=== PATIENT | female | born 1965 | race African-American/Black ===

== ENCOUNTER 2016-09-05 14:23 | Inpatient (IN) | payer OTHER ==
[~2016-09-05] VITALS: Ht 157.5 cm; Wt 91.8 kg
--- NOTE | ~2016-09-05 | 2DMMODE ---
[facility] [place] [address] 2 D/M-MODE ECHOCARDIOGRAM Name: DAWOOD CASTRO Room #: 202-P [facility] IN .R.#: [id number] Admission: 09/05/16 Attend Phys: Natasha Rojo Discharge: Date of : 69 Date of Service: 09/06/16 1121 Report #: [id number] THIS REPORT FOR: //name// Transthoracic Echocardiography Ordering physician: Luisito Keller Referring physician: Gonzalo Shaffer Vijay Perinatology Physician: Anastasiia Mcgrath Indications/History: Chest pain, short of breath. Hx: DM, HTN, obesity. BP: 91 / 56 HR: 85bpm Height: 62in Weight: 199.6lb Study data: M-mode, complete 2D, complete spectral Doppler, and color Doppler. Location: Echo laboratory. Routine. Image quality was adequate. 2D measurements Normal Normal LVID ED 41mm 36-57 IVS ED 12.2mm 6-11 LVID ES 27.2mm 23-40 LVPW ED 9.2mm 6-11 LA volume 20ml/m2 16-28 AoRoot diam 34.6mm 21-37 index ED LVOT diameter 20mm 18-23 Findings: Left ventricle: The cavity size was normal. Wall thickness was normal. Systolic function was normal. The estimated ejection fraction was in the range of 60% to 65%. Wall motion was normal. Right ventricle: The cavity size was normal. Systolic function was normal. Right atrium: The atrium was normal in size. Left atrium: The atrium was normal in size. Volume index: 20ml/m2 (S). Aortic valve: Structurally normal valve. Doppler: There was no stenosis. No regurgitation. Peak velocity: 138.4cm/s (S). [facility] [address] [place] [address] 2 D/M-MODE ECHOCARDIOGRAM Name: DAWOOD CASTRO Room #: 202-P [facility] IN .R.#: [id number] Admission: 09/05/16 Attend Phys: Luisitokale Gilesdoni Natasha Discharge: Date of : 69 Date of Service: 09/06/16 1121 Report #: [id number] Mitral valve: Structurally normal valve. Doppler: There was no evidence for stenosis. No regurgitation. Peak E-wave velocity: 50.6cm/s. Peak A-wave velocity: 71cm/s. Tricuspid valve: Structurally normal valve. Doppler: There was no evidence for stenosis. Trivial regurgitation. Pulmonic valve: Structurally normal valve. Doppler: There was no evidence for stenosis. Mild regurgitation. Pericardium: There was no pericardial effusion. Aorta: Aortic root: The aortic root was normal in size. Pulmonary artery: Pressure could not be reliably determined due to minimal or absent tricuspid insufficiency jet, but pulmonary hypertension was not suggested. Diastolic function: Doppler parameters are consistent with abnormal left ventricular relaxation (grade 1 diastolic dysfunction). Systemic veins: Inferior vena cava: The vessel was normal in size; the respirophasic diameter changes were in the normal range (= 50%). Conclusions 1. Left ventricle: Systolic function was normal. The estimated ejection fraction was in the range of 60% to 65%. Wall motion was normal. Doppler parameters are consistent with abnormal left ventricular relaxation (grade 1 diastolic dysfunction). 2. Aortic valve: Structurally normal valve. There was no stenosis. No regurgitation. 3. Mitral valve: Structurally normal valve. There was no evidence for stenosis. No regurgitation. 4. Pericardium, extracardiac: There was no pericardial effusion. <ELECTRONICALLY SIGNED> By: Everett Ochoa MD, [facility] 09/06/16 1227 1121 1227 Everett Ochoa MD, [facility] /enrique
--- NOTE | ~2016-09-05 | EKG ---
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
--- NOTE | ~2016-09-05 | EKG ---
[address] [place] [address] ELECTROCARDIOGRAM REPORT Name: DAWOOD CASTRO Room #: 202-P ADM IN M.R.#: [id number] Admission: 09/05/16 Attend Phys: Luisito Keller MD Discharge: Date of : 69 Report #: [id number] THIS REPORT FOR: //name// [facility] Test Date: 2016-09-05 Test Time: 18:09:35 Pat Name: DAWOOD CASTRO Department: Room: 202 Gender: F Airport Operations Specialist: Natasha OSORIO : 1965 Requested By: Luisito Keller Order Number: [id number] MD: Oneil Miller Measurements Intervals [place] Rate: 75 P: 56 HI: 132 QRS: 22 QRSD: 79 T: 21 QT: 375 QTc: 419 Interpretive Statements Sinus rhythm Low voltage, precordial leads Baseline wander in lead(s) II,III,aVF Compared to ECG 09/05/2016 14:30:40 Low QRS voltage now present Sinus tachycardia no longer present Electronically Signed On 09-06-2016 8:19:51 IS PROJECT MANAGER by Oneil Miller [email or web address] <ELECTRONICALLY SIGNED> By: Oneil Miller MD 09/06/16 0819 180 180 Oneil Miller MD /EPI
--- NOTE | ~2016-09-05 | H ---
[facility] [place] [address] HISTORY AND PHYSICAL Name: DAWOOD CASTRO Room #: 202-P [facility] IN M.R.#: [id number] Admission: 09/05/16 Attend Phys: Luisito Keller MD Discharge: 09/07/16 Date of : 69 Report #: [id number] THIS REPORT FOR: //name// CC: Gonzalo Keller MD DATE OF SERVICE: 09/05/2016 CHIEF COMPLAINT: Chest pain. HISTORY OF PRESENT ILLNESS: The patient is a 50-year-old female with history of diabetes, hypertension who presented to the Emergency Room complaining of chest pain and shortness of breath symptoms. Chest pain had been ongoing over the last 1 week on and off, it is primarily over the left side with occasional radiation to the arm. She rates the pain over 6-7/10. Pain is on and off both at rest and with activity. It is primarily when she lies down. Pain increases with the arm movement. She has also had shortness of breath and nausea. Apparently, she has been using her daughter's oxygen at home for the last 3 days because of shortness of breath. No fever or chills. She denies any cough, expectoration, no nausea, vomiting. No dizziness. PAST MEDICAL HISTORY: Significant for diabetes type 2, hypertension, partial hysterectomy in 2005, left ankle fracture in 1986, history of asthma or bronchiolitis. She has been on prednisone since August of 2015 for lung inflammation. No history of any sarcoidosis, history of appendectomy, cholecystectomy, chronic anemia requiring transfusion, frequent UTI and lupus. HOME MEDICATIONS: Were reviewed, please look at the nursing documentations. The patient has been on Invokana, Levemir 16 units twice a day, lisinopril/hydrochlorothiazide once a day. ALLERGIES: No known drug allergies. SOCIAL HISTORY: No smoking, alcohol abuse or illicit drug abuse. FAMILY HISTORY: Significant for hypertension in mother and grandmother had congestive heart failure. REVIEW OF SYSTEMS: CONSTITUTIONAL: No change in her weight. No fever or chills. EYES: No change in vision. THROAT: Denies any sore throat. CARDIOVASCULAR: As above. RESPIRATORY: No cough, expectoration. She has had mild shortness of breath. [facility] [address] [place] [address] HISTORY AND PHYSICAL Name: DAWOOD CASTRO Room #: 202-[facility] IN ..#: [id number] Admission: 09/05/16 Attend Phys: Luisito Keller MD Discharge: 09/07/16 Date of : 69 Report #: [id number] GASTROINTESTINAL: No nausea, vomiting. GENITOURINARY: No dysuria, hematuria. NEUROLOGIC: No focal numbness or weakness of the extremities. PSYCHIATRIC: No anxiety or depression. The 12-point review of system is negative other than the positive and the negative dictated in the history of present illness and the review of system. PHYSICAL EXAMINATION: VITAL SIGNS: Blood pressure is 120/73, heart rate of 85 per minute, afebrile. GENERAL: The patient is awake and alert, not in acute respiratory distress. EYES: Pupils equal, reactive to light, nonicteric conjunctiva. NECK: Supple, no JVD, no bruit, no lymphadenopathy. CARDIOVASCULAR SYSTEM: S1, S2, no S3, no murmur. CHEST: Bilateral air entry present. Clear on auscultation. ABDOMEN: Soft, bowel sounds present, no mass, no organomegaly, no tenderness. PERIPHERY: No pedal edema. No calf tenderness. Dorsalis pedis 1+. NEUROLOGICAL: No gross motor or sensory deficit. LABORATORY DATA: Reviewed. EKG shows sinus tachycardia, no significant ST segment or T-wave changes. CT of the chest showed no PE. A small reactive mediastinal adenopathy. Lungs are clear of acute infiltrate. A small subpleural nodule in the right mid lung. Areas of breast density and calcification are difficult to characterize on the right side. Mammographic correlation is recommended. Chest x-ray earlier today showed no significant cardiopulmonary abnormality. Troponin has been negative so far. White count is 10.4, normal hemoglobin, hematocrit and platelets. Potassium 3.2, BUN and creatinine are within normal limit. Glucose 361, AST and ALT are within normal limit. Albumin is 3.4. PT, PTT are within normal limits. ASSESSMENT AND PLAN: 1. Chest pain, atypical. She has some focal tenderness over the costochondral junction, but she does have multiple risk factors. The patient will be admitted to telemetry troponin. We want to repeat another stat EKG and a troponin. I have discussed this with the patient, nursing staff in detail. She will be continued on aspirin. We will keep her n.p.o. for possible stress test in the morning if her serial troponins are negative. She did have a CT of the chest done, which showed no evidence of any PE. 2. Diabetes. We will get her obtain an A1c level. We will keep her on sliding scale insulin and continue her on the Levemir home dose. 3. DVT prophylaxis, she will be on Lovenox for deep venous thrombosis prophylaxis. 4. Obesity. 5. Hypertension. The patient will be continued on her present home medication for hypertension. We will monitor closely. 6. History of lupus and lung inflammation for which she takes prednisone. [facility] [address] [facility] [place] [address] HISTORY AND PHYSICAL Name: DAWOOD CASTRO Room #: 202-P [facility] IN M.R.#: [id number] Admission: 09/05/16 Attend Phys: Luisito Keller MD Discharge: 09/07/16 Date of : 69 Report #: [id number] Prednisone will be continued. Treatment plan has been explained to the patient in detail. <ELECTRONICALLY SIGNED> By: Luisito Keller MD 09/08/16 1417 1751 1901 Luisito Keller MD /nt
--- NOTE | ~2016-09-05 | CARDNUC ---
[facility] [address] [employer] [place] [address] CARDIAC NUCLEAR IMAGING REPORT Name: GLORIADAWOOD DE SOUZA Room #: 202-P [facility] IN M.R.#: [id number] Admission: 09/05/16 Attend Phys: Natasha Rojo Discharge: 09/07/16 Date of : 69 Date of Service: 09/07/16 1751 Report #: [id number] THIS REPORT FOR: //name// CC: Gonzalo Keller DATE OF SERVICE: 09/06/2016 Vasodilator Gated SPECT Myocardial Perfusion Imaging: Regadenoson Attending physician: Luisito Keller MD. Referring board mill supervisor: None. Date of study: 09/06/2016. 2-day study. Indications for study: Chest pain and dyspnea. Risk factors: Age, hypertension, and diabetes mellitus. Cardiac history: None. Cardiac medications: Lisinopril. Gender: Female. PROCEDURE: The patient was given 0.4 mg of intravenous regadenoson (Lexiscan) administered over approximately 20 seconds. The patient did not complain of chest discomfort during the infusion. At baseline, the blood pressure was 96/61 and the pulse was 89; at completion of the regadenoson infusion, the blood pressure was 96/60 and the pulse was 121. At completion of the recovery phase, the blood pressure was 93/57 and the pulse was 113. The baseline EKG demonstrated normal sinus rhythm, poor R-wave progression, nonspecific ST-T wave changes. The EKG at completion of the administration of regadenoson demonstrated no significant changes noticed. Rhythm disturbances included none. Gated-SPECT myocardial perfusion imaging was performed using a two-day imaging protocol and a technetium isotope technique. The 40.0 mCi of Tc-99m sestamibi was administered intravenously at rest; 40.0 mCi of Tc-99m sestamibi was administered intravenously within 10 seconds of the completion of the administration of regadenoson. Imaging was obtained in the supine position and when feasible, adjunctive stress imaging in the prone position was obtained. FINDINGS: The overall quality of the study was satisfactory. There was evidence of attenuation artifact. There was no evidence of abnormal extracardiac uptake of the radionuclide. The baseline imaging study demonstrated homogenous uptake of radioisotope all segments of the myocardium, except for a region of photopenia in the anterior [address] [address] CARDIAC NUCLEAR IMAGING REPORT Name: DAWOOD CASTRO Room #: 202-P [facility] IN M.R.#: [id number] Admission: 09/05/16 Attend Phys: Natasha Rojo Discharge: 09/07/16 Date of : 69 Date of Service: 09/07/16 1751 Report #: [id number] apical wall. The imaging obtained following the administration of the vasodilator demonstrated no significant changes. On gated analysis, the left ventricle demonstrated normal contractility. The gated ejection fraction was 90%. The left ventricle was of normal size at rest and did not dilate with administration of the vasodilator. IMPRESSIONS: CLINICAL RESPONSE: Adequate response to intravenous Lexiscan. STRESS EKG RESPONSE: Inadequate heart rate for an ECG diagnosis. MYOCARDIAL PERFUSION STUDY: Scintigraphic evidence of anterior wall region of photopenia without wall motion abnormality which is suggestive of attenuation artifact. FUNCTIONAL CAPACITY: Not assessed. CONCLUSIONS: Low risk study. <ELECTRONICALLY SIGNED> By: Heber Kim MD 09/08/16 1235 1751 1859 Heber Kmi MD /nt
[~2016-09-05 14:23] MED LIST: ACTOS 30 MG TAB30 M1; ADVAIR 250-501 EACH IH; ALBUTEROL2.5 MG/0.5 INH; ANTIVERT25 MG; ASPIRIN81 M2 PO; ATIVAN1 MG PO; BP MED; CIPROFLOXACIN500 M1 PO; DIFLUCAN150 MG PO; FLAGYL500 MG PO; GLIMEPIRIDE4 MG; GLUCOPHAGE500 MG PO; GUIATUSS DM SY120 ML PO; IBUPROFEN 600600 M1 PO; INVOKANA100 MG PO; LEVEMIR SUBQ; LISINOPRIL-HCT1 EAC1 PO; LO-DOSE ASPIRIN81 M1 PO; MECLIZINE 25 MG25 M1; MECLIZINE HCL25 M1 PO; MOTION RELIEF25 MG PO; NORCO 5-325 TA1 EACH PO; NYAMYC15 GM TOP; PEPCID40 MG PO; PERCOCET PO; PREDNISONE 20 M20 M1 PO; PRILOSEC 20 MG20 MG PO; PROAIR HFA8.5 GM INH; PROTONIX 20 MG20 M1 PO; PROVENTIL; TRANSDERM-SCO1 PATC1 TD; ZOFRAN ODT4 MG PO; ZPAK PO
[2016-09-05 14:32] VITALS: BP 139/93
[2016-09-05 15:04] LABS: ABSOLUTE NEUTROPHILS 5.6 thou/uL (1.4-8.2); BASOPHILS 1.5 % (0.0-2.0); EOSINOPHILS 1.1 % (0.0-3.0); HEMATOCRIT 41.6 % (37.0-47.0); HEMOGLOBIN 13.9 gm/dL (12.0-15.0); LYMPHOCYTES 36.4 % (24.0-44.0); MCH 25.4 pg (26.0-34.0); MCHC 33.4 % (28.0-37.0); MCV 75.8 fL (80.0-100.0); MONOCYTES 5.7 % (1.0-8.0); PLATELET COUNT 385 thou/uL (150-400); POLYS 55.3 % (36.0-66.0); RBC 5.49 mil/uL (4.20-5.00); RDW 14.1 % (10.5-14.5); WBC 10.1 thou/uL (4.0-11.0)
[2016-09-05 15:05] LABS: MANUAL DIFF NO
[2016-09-05 15:08] LABS: ANION GAP 11 mmol/L (7-16); BUN 6 mg/dL (7-18); CALCIUM 9.4 mg/dL (8.5-10.1); CHLORIDE 100 mmol/L (98-107); CO2 26 mmol/L (21-32); CREATININE 0.7 mg/dL (0.6-1.3); GLUCOSE 361 mg/dL (70-99); POTASSIUM 3.6 mmol/L (3.5-5.1); SODIUM 137 mmol/L (136-145)
[2016-09-05 15:13] LABS: APTT 22.6 Seconds (24.5-32.8); PROTIME 10.2 Seconds (9.3-11.4)
[2016-09-05 15:21] LABS: ALBUMIN 3.4 g/dL (3.4-5.0); ALKALINE PHOSPHATASE 91 U/L (46-116); NT-PRO BRAIN NAT PEPTIDE 35 pg/mL (<300); SGOT < 5 U/L (15-37); SGPT 20 U/L (30-65); TOTAL BILIRUBIN 0.4 mg/dL (<0.1-1.0); TOTAL PROTEIN 7.5 g/dL (6.4-8.2); TROPONIN-I < 0.04 ng/mL (<0.04-0.07)
[2016-09-05 17:17] VITALS: BP 121/71
[2016-09-05 17:50] VITALS: BP 112/78
[2016-09-05 19:29] VITALS: BP 114/73
[2016-09-05 23:30] VITALS: BP 107/73
[2016-09-06 03:03] LABS: CHOLESTEROL 186 mg/dL (<200); HDL CHOLESTEROL 33 mg/dL (>40); TC:HDL 5.6 Ratio (Not establshd); TRIGLYCERIDE 585 mg/dL (<150); TROPONIN-I < 0.04 ng/mL (<0.04-0.07); VLDL 117 mg/dL (<40)
[2016-09-06 03:09] VITALS: BP 111/66
[2016-09-06 03:12] LABS: GLYCOHEMOGLOBIN (HGB A1C) 12.9 % (4.8-5.6)
[2016-09-06 07:20] VITALS: BP 91/56
[2016-09-06 11:20] VITALS: BP 96/69
[2016-09-06 16:25] VITALS: BP 96/58
[2016-09-06 19:34] VITALS: BP 97/57
[2016-09-07 03:19] VITALS: BP 100/63
[2016-09-07 07:12] VITALS: BP 107/69
[2016-09-07 11:33] VITALS: BP 107/76
[2016-09-07] MEDS ORDERED: PREDNISONE 20 M20 M1 PO (15:17)
[2016-09-07] MEDS ORDERED: LEVEMIR SUBQ (15:17)
[2016-09-07 16:27] VITALS: BP 117/71
[2016-09-07 18:02] VITALS: BP 117/71
== END 2016-09-07 18:55 | disposition home or self-care (01) | DRG 313 ==
LOC: ER 14:23 → 2N 17:03 → EROBS 17:03 → ER 17:17 → 2N 17:17
PROVIDERS: Emergency Medicine; Internal Medicine
DX: R07.89 Other chest pain (principal); E11.9 Type 2 diabetes mellitus without complications; I10 Essential (primary) hypertension; J45.909 Unspecified asthma, uncomplicated; Z90.49 Acquired absence of other specified parts of digestive tract; Z79.899 Other long term (current) drug therapy; Z87.81 Personal history of (healed) traumatic fracture; Z90.711 Acquired absence of uterus with remaining cervical stump; Z82.49 Family history of ischemic heart disease and other diseases of the circulatory system; E66.9 Obesity, unspecified; Z68.37 Body mass index [BMI] 37.0-37.9, adult; E78.1 Pure hyperglyceridemia; Z23 Encounter for immunization
CPT/HCPCS: 10081

== ENCOUNTER 2017-01-26 11:40 | Emergency (ER) | payer OTHER ==
[~2017-01-26] VITALS: Ht 157.5 cm; Wt 90.7 kg
[~2017-01-26 11:40] MED LIST changes: +BACTRIM DS TAB1 EACH PO; +KEFLEX500 MG PO
[2017-01-26 12:08] LABS: URINE BILIRUBIN NEGATIVE (Negative); URINE BLOOD NEGATIVE (Negative); URINE COLOR YELLOW; URINE GLUCOSE-RANDOM* 3+ (Negative); URINE KETONES NEGATIVE (Negative); URINE LEUKOCYTES-REFLEX NEGATIVE (Negative); URINE PROTEIN (DIPSTICK) NEGATIVE (Negative); URINE SPECIFIC GRAVITY <= 1.005 (1.003-1.035); URINE UROBILINOGEN 0.2 E.U./dl (0.2-1.0)
[2017-01-26 12:45] LABS: ABSOLUTE NEUTROPHILS 6.3 thou/uL (1.4-8.2); BASOPHILS 0.9 % (0.0-2.0); EOSINOPHILS 1.1 % (0.0-3.0); HEMATOCRIT 39.5 % (37.0-47.0); HEMOGLOBIN 13.5 gm/dL (12.0-15.0); LYMPHOCYTES 29.4 % (24.0-44.0); MANUAL DIFF NO; MCH 25.8 pg (26.0-34.0); MCHC 34.2 g/dL (28.0-37.0); MCV 75.5 fL (80.0-100.0); MONOCYTES 7.4 % (1.0-8.0); PLATELET COUNT 384 thou/uL (150-400); POLYS 61.2 % (36.0-66.0); RBC 5.23 mil/uL (4.20-5.00); RDW 14.2 % (10.5-14.5); WBC 10.2 thou/uL (4.0-11.0)
[2017-01-26 12:52] LABS: CALCIUM 9.2 mg/dL (8.5-10.1); CREATININE 0.7 mg/dL (0.6-1.0); POTASSIUM 4.3 mmol/L (3.5-5.1)
[2017-01-26 12:56] LABS: ALBUMIN 3.3 g/dL (3.4-5.0); TOTAL BILIRUBIN 0.3 mg/dL (<0.1-1.0); TOTAL PROTEIN 7.5 g/dL (6.4-8.2)
[2017-01-26] MEDS ORDERED: TESSALON PERLE100 MG PO (13:33)
[2017-01-26] MEDS ORDERED: PHENERGAN 25 MG25 M1 PO (13:33)
== END 2017-01-26 14:07 | disposition home or self-care (01) ==
LOC: ER 11:40
PROVIDERS: Physician Assistant
DX: R11.2 Nausea with vomiting, unspecified (principal); R19.7 Diarrhea, unspecified; R05 Cough; B34.9 Viral infection, unspecified; E11.65 Type 2 diabetes mellitus with hyperglycemia; I10 Essential (primary) hypertension; J45.909 Unspecified asthma, uncomplicated; M32.9 Systemic lupus erythematosus, unspecified; Z90.710 Acquired absence of both cervix and uterus; Z90.49 Acquired absence of other specified parts of digestive tract; Z86.2 Personal history of diseases of the blood and blood-forming organs and certain disorders involving the immune mechanism; Z87.440 Personal history of urinary (tract) infections; Z79.4 Long term (current) use of insulin

== ENCOUNTER 2017-02-01 02:19 | Emergency (ER) | payer OTHER ==
[~2017-02-01] VITALS: Ht 157.5 cm; Wt 90.7 kg
--- NOTE | ~2017-02-01 | EKG ---
[place] [address] [facility] [place] [address] ELECTROCARDIOGRAM REPORT Name: GLORIADAWOOD DE SOUZA [id number] Admission: 02/01/17 Attend Phys: Discharge: 02/01/17 Date of : 69 Report #: [id number] THIS REPORT FOR: //name// [facility] ED Test Date: 2017-02-01 Test Time: 02:34:10 Pat Name: DAWOOD CASTRO Department: Room: Gender: F Restorative Rehab Aide: GUY : 1965 Requested By: Medhat Chakraborty Order Number: [id number] MD: Everett Ochoa Measurements Intervals [place] Rate: 94 P: 52 [place]: 141 QRS: 34 QRSD: 82 T: 30 QT: 353 QTc: 442 Interpretive Statements Sinus rhythm No significant abnormality Compared to ECG 12/14/2016 16:25:41 septal Q waves are no longer present. Electronically Signed On 02-02-2017 8:06:26 CDT by Everett Ochoa [email or web address] <ELECTRONICALLY SIGNED> By: Everett Ochoa MD, [facility] 02/02/17 0806 0234 023 Everett Ochoa MD, FACC /EPI
[~2017-02-01 02:19] MED LIST changes: +PHENERGAN 25 MG25 M1 PO; +TESSALON PERLE100 MG PO
[2017-02-01 02:48] LABS: ABSOLUTE NEUTROPHILS 6.6 thou/uL (1.4-8.2); BASOPHILS 2.5 % (0.0-2.0); EOSINOPHILS 1.4 % (0.0-3.0); HEMATOCRIT 37.7 % (37.0-47.0); HEMOGLOBIN 12.8 gm/dL (12.0-15.0); LYMPHOCYTES 34.3 % (24.0-44.0); MCH 25.8 pg (26.0-34.0); MCV 75.9 fL (80.0-100.0); MONOCYTES 9.5 % (1.0-8.0); PLATELET COUNT 356 thou/uL (150-400); POLYS 52.3 % (36.0-66.0); RBC 4.96 mil/uL (4.20-5.00); RDW 13.9 % (10.5-14.5); WBC 12.6 thou/uL (4.0-11.0)
[2017-02-01 02:49] LABS: MANUAL DIFF NO
[2017-02-01 03:03] LABS: ANION GAP 8 mmol/L (7-16); BUN 13 mg/dL (7-18); CALCIUM 9.7 mg/dL (8.5-10.1); CHLORIDE 98 mmol/L (98-107); CO2 29 mmol/L (21-32); CREATININE 0.9 mg/dL (0.6-1.0); GLUCOSE 381 mg/dL (74-106); SODIUM 135 mmol/L (136-145)
[2017-02-01 03:07] LABS: ALBUMIN 3.2 g/dL (3.4-5.0); ALKALINE PHOSPHATASE 91 U/L (46-116); MAGNESIUM 1.9 mg/dL (1.8-2.4); SGOT 13 U/L (15-37); SGPT 21 U/L (30-65); TOTAL BILIRUBIN 0.3 mg/dL (<0.1-1.0); TROPONIN-I < 0.04 ng/mL (<0.04-0.07)
[2017-02-01 03:21] LABS: URINE BILIRUBIN NEGATIVE (Negative); URINE BLOOD NEGATIVE (Negative); URINE COLOR YELLOW; URINE GLUCOSE-RANDOM* 3+ (Negative); URINE KETONES NEGATIVE (Negative); URINE LEUKOCYTES-REFLEX NEGATIVE (Negative); URINE PROTEIN (DIPSTICK) NEGATIVE (Negative); URINE SPECIFIC GRAVITY <= 1.005 (1.003-1.035); URINE UROBILINOGEN 0.2 E.U./dl (0.2-1.0)
[2017-02-01] MEDS ORDERED: NAPROXEN375 MG PO (03:52)
[2017-02-01] MEDS ORDERED: TRAMADOL 50 MG50 MG PO (03:52)
[2017-02-01] MEDS ORDERED: VENTOLIN HFA 1818 GM INH (03:53)
[2017-02-01] MEDS ORDERED: PROAIR HFA8.5 GM INH (03:54)
[2017-02-01] MEDS ORDERED: VALIUM2 MG PO (04:26)
== END 2017-02-01 05:07 | disposition home or self-care (01) ==
LOC: ER 02:19
PROVIDERS: Emergency Medicine
DX: R42 Dizziness and giddiness (principal); R05 Cough; D72.829 Elevated white blood cell count, unspecified; M79.1 Myalgia; E11.9 Type 2 diabetes mellitus without complications; I10 Essential (primary) hypertension; Z90.711 Acquired absence of uterus with remaining cervical stump; J45.909 Unspecified asthma, uncomplicated; Z90.49 Acquired absence of other specified parts of digestive tract; M32.9 Systemic lupus erythematosus, unspecified

== ENCOUNTER 2017-03-09 20:28 | Emergency (ER) | payer OTHER ==
[~2017-03-09] VITALS: Ht 157.5 cm; Wt 86.2 kg
--- NOTE | ~2017-03-09 | EKG ---
[address] [address] ELECTROCARDIOGRAM REPORT Name: DAWOOD CASTRO [facility] [id number] Admission: 03/09/17 Attend Phys: Discharge: 03/09/17 Date of : 69 Report #: [id number] THIS REPORT FOR: //name// [facility] ED Test Date: 2017-03-09 Test Time: 21:06:06 Pat Name: DAWOOD CASTRO Department: Room: Gender: F Tools Programmer: ELVIA Flores : 1965 Requested By: Dayana Rodriguez Order Number: [id number] MD: Oneil Miller Measurements Intervals [place] Rate: 92 P: 53 CT: 152 QRS: 24 QRSD: 85 T: 24 QT: 366 QTc: 453 Interpretive Statements Sinus rhythm Compared to ECG 02/01/2017 02:34:10 No significant changes Electronically Signed On 03-12-2017 22:03:15 CDT by Oneil Miller [email or web address] <ELECTRONICALLY SIGNED> By: Oneil Miller MD 03/12/17 2203 2106 MD YAMILET Arroyo
[~2017-03-09 20:28] MED LIST changes: +NAPROXEN375 MG PO; +TRAMADOL 50 MG50 MG PO; +VALIUM2 MG PO; +VENTOLIN HFA 1818 GM INH
[2017-03-09 21:09] LABS: ABSOLUTE NEUTROPHILS 7.2 thou/uL (1.4-8.2); BASOPHILS 2.1 % (0.0-2.0); EOSINOPHILS 0.6 % (0.0-3.0); HEMATOCRIT 37.7 % (37.0-47.0); HEMOGLOBIN 12.9 gm/dL (12.0-15.0); LYMPHOCYTES 29.1 % (24.0-44.0); MCHC 34.2 g/dL (28.0-37.0); MONOCYTES 9.1 % (1.0-8.0); PLATELET COUNT 360 thou/uL (150-400); POLYS 59.1 % (36.0-66.0); RBC 4.96 mil/uL (4.20-5.00); RDW 14.3 % (10.5-14.5); WBC 12.2 thou/uL (4.0-11.0)
[2017-03-09 21:12] LABS: MANUAL DIFF NO
[2017-03-09 21:19] LABS: ANION GAP 11 mmol/L (7-16); BUN 12 mg/dL (7-18); CALCIUM 9.1 mg/dL (8.5-10.1); CHLORIDE 96 mmol/L (98-107); CO2 27 mmol/L (21-32); GLUCOSE 454 mg/dL (74-106); POTASSIUM 3.8 mmol/L (3.5-5.1); SODIUM 134 mmol/L (136-145)
[2017-03-09 21:26] LABS: URINE BILIRUBIN NEGATIVE (Negative); URINE BLOOD NEGATIVE (Negative); URINE COLOR YELLOW; URINE GLUCOSE-RANDOM* 3+ (Negative); URINE KETONES NEGATIVE (Negative); URINE NITRITE NEGATIVE (Negative); URINE PROTEIN (DIPSTICK) NEGATIVE (Negative); URINE SPECIFIC GRAVITY <= 1.005 (1.003-1.035); URINE UROBILINOGEN 0.2 E.U./dl (0.2-1.0)
[2017-03-09 21:26] LABS: ALBUMIN 3.2 g/dL (3.4-5.0); ALKALINE PHOSPHATASE 90 U/L (46-116); SGOT 14 U/L (15-37); SGPT 21 U/L (30-65); TOTAL BILIRUBIN 0.2 mg/dL (<0.1-1.0); TOTAL PROTEIN 7.5 g/dL (6.4-8.2); TROPONIN-I < 0.04 ng/mL (<0.04-0.07)
== END 2017-03-09 23:25 | disposition home or self-care (01) ==
LOC: ER 20:28
PROVIDERS: Physician Assistant
DX: E11.65 Type 2 diabetes mellitus with hyperglycemia (principal); R20.2 Paresthesia of skin; I10 Essential (primary) hypertension; J45.909 Unspecified asthma, uncomplicated; M32.9 Systemic lupus erythematosus, unspecified; Z90.711 Acquired absence of uterus with remaining cervical stump; Z90.49 Acquired absence of other specified parts of digestive tract; Z79.4 Long term (current) use of insulin

== ENCOUNTER 2017-06-15 13:56 | Emergency (ER) | payer OTHER ==
[~2017-06-15] VITALS: Ht 167.6 cm; Wt 99.8 kg
[2017-06-15 14:45] LABS: ABSOLUTE NEUTROPHILS 6.6 thou/uL (1.4-8.2); BASOPHILS 1.2 % (0.0-2.0); HEMATOCRIT 39.9 % (37.0-47.0); HEMOGLOBIN 13.6 gm/dL (12.0-15.0); LYMPHOCYTES 29.4 % (24.0-44.0); MANUAL DIFF NO; MCHC 34.2 g/dL (28.0-37.0); MCV 76.1 fL (80.0-100.0); PLATELET COUNT 387 thou/uL (150-400); POLYS 62.4 % (36.0-66.0); RBC 5.24 mil/uL (4.20-5.00); RDW 14.3 % (10.5-14.5); WBC 10.6 thou/uL (4.0-11.0)
[2017-06-15 14:48] LABS: CALCIUM 9.5 mg/dL (8.5-10.1); CREATININE 0.8 mg/dL (0.6-1.0); POTASSIUM 4.1 mmol/L (3.5-5.1)
[2017-06-15 14:55] LABS: ALBUMIN 3.2 g/dL (3.4-5.0); TOTAL BILIRUBIN 0.3 mg/dL (<0.1-1.0); TOTAL PROTEIN 7.4 g/dL (6.4-8.2)
[2017-06-15 15:27] LABS: URINE BILIRUBIN NEGATIVE (Negative); URINE BLOOD NEGATIVE (Negative); URINE COLOR YELLOW; URINE GLUCOSE-RANDOM* 3+ (Negative); URINE KETONES NEGATIVE (Negative); URINE LEUKOCYTES-REFLEX NEGATIVE (Negative); URINE PROTEIN (DIPSTICK) NEGATIVE (Negative); URINE SPECIFIC GRAVITY <= 1.005 (1.003-1.035); URINE UROBILINOGEN 0.2 E.U./dl (0.2-1.0)
[2017-06-15 15:49] LABS: ABG SAMPLE TYPE VENOUS; BE(vivo) -3.3 mmol/L (-2 to +3); HCO3 21.9 mmol/L (22.0-26.0); LACTATE 1.87 mmol/L (0.5-2.0); O2(CT) 19.6 mL/dL (15.0-23.0); O2Hb VENOUS 95.3 (65.0-85.0); PCO2 VENOUS 40.1 mmHg (41.0-51.0); PO2 VENOUS 109.1 mmHg (35.0-45.0); sO2 VENOUS 97.8 % (65.0-85.0); tCO2 23.2 mmol/L (24.0-30.0)
[2017-06-15 15:50] LABS: STICK SITE VENOUS
[2017-06-15] MEDS ORDERED: PREDNISONE 20 M20 MG PO (18:55)
[2017-06-15] MEDS ORDERED: ACETAMINOPHEN-1 EAC1 PO (18:55)
== END 2017-06-15 22:04 | disposition home or self-care (01) ==
LOC: ER 13:56
PROVIDERS: Emergency Medicine
DX: E11.65 Type 2 diabetes mellitus with hyperglycemia (principal); B34.9 Viral infection, unspecified; I10 Essential (primary) hypertension; J45.909 Unspecified asthma, uncomplicated; M32.9 Systemic lupus erythematosus, unspecified; Z90.711 Acquired absence of uterus with remaining cervical stump; Z90.49 Acquired absence of other specified parts of digestive tract; Z86.2 Personal history of diseases of the blood and blood-forming organs and certain disorders involving the immune mechanism; Z87.440 Personal history of urinary (tract) infections; Z79.4 Long term (current) use of insulin

== ENCOUNTER 2017-10-13 19:19 | Emergency (ER) | payer OTHER ==
[~2017-10-13] VITALS: Ht 157.5 cm; Wt 97.5 kg
[~2017-10-13 19:19] MED LIST changes: +ACETAMINOPHEN-1 EAC1 PO; +AUGMENTIN 500-1 EACH PO; +LANTUS100 UNIT/M SUBQ; +NOVOLOG100 UNIT/1 SUBQ; +PREDNISONE 20 M20 MG PO; +PROAIR HFA8.5 GM ENDOTRACH
[2017-10-13 19:23] VITALS: BP 122/97
[2017-10-13 20:04] LABS: ABSOLUTE NEUTROPHILS 7.7 thou/uL (1.4-8.2); BASOPHILS 1.8 % (0.0-2.0); EOSINOPHILS 0.9 % (0.0-3.0); HEMATOCRIT 35.9 % (37.0-47.0); HEMOGLOBIN 12.3 gm/dL (12.0-15.0); LYMPHOCYTES 31.5 % (24.0-44.0); MCH 25.8 pg (26.0-34.0); MCHC 34.4 g/dL (28.0-37.0); MONOCYTES 9.2 % (1.0-8.0); PLATELET COUNT 383 thou/uL (150-400); POLYS 56.6 % (36.0-66.0); RBC 4.79 mil/uL (4.20-5.00); RDW 14.1 % (10.5-14.5); WBC 13.5 thou/uL (4.0-11.0)
[2017-10-13 20:07] LABS: CALCIUM 9.3 mg/dL (8.5-10.1); CREATININE 0.9 mg/dL (0.6-1.0); POTASSIUM 3.3 mmol/L (3.5-5.1)
[2017-10-13] MEDS ORDERED: TUSSIONEX PENN115 ML PO (20:10)
[2017-10-13] MEDS ORDERED: PROAIR HFA8.5 GM INH (20:10)
[2017-10-13 20:25] LABS: ALBUMIN 3.2 g/dL (3.4-5.0); DIRECT BILIRUBIN < 0.1 mg/dL (<0.1-0.3); SGOT 14 U/L (15-37); SGPT 21 U/L (30-65); TOTAL BILIRUBIN 0.2 mg/dL (<0.1-1.0); TOTAL PROTEIN 7.2 g/dL (6.4-8.2)
[2018-02-24] MEDS ORDERED: ATIVAN0.5 MG PO (07:02)
[2018-02-24] MEDS ORDERED: ZPAK PO (07:09)
== END 2017-10-13 20:16 | disposition home or self-care (01) ==
LOC: ER 19:19
PROVIDERS: Emergency Medicine
DX: J06.9 Acute upper respiratory infection, unspecified (principal); E87.6 Hypokalemia; D72.829 Elevated white blood cell count, unspecified; E11.9 Type 2 diabetes mellitus without complications; J45.909 Unspecified asthma, uncomplicated; I10 Essential (primary) hypertension; Z90.49 Acquired absence of other specified parts of digestive tract; Z86.2 Personal history of diseases of the blood and blood-forming organs and certain disorders involving the immune mechanism; Z79.4 Long term (current) use of insulin

== ENCOUNTER 2017-10-15 19:05 | Emergency (ER) | payer OTHER ==
[~2017-10-15 19:05] MED LIST changes: +TUSSIONEX PENN115 ML PO
[2017-10-15 19:07] VITALS: BP 145/84
[2018-02-24] MEDS ORDERED: ATIVAN0.5 MG PO (07:02)
[2018-02-24] MEDS ORDERED: ZPAK PO (07:09)
== END 2017-10-15 20:17 | disposition home or self-care (01) ==
LOC: ER 19:05
DX: Z53.21 Procedure and treatment not carried out due to patient leaving prior to being seen by health care provider (principal)

== ENCOUNTER 2017-11-05 22:29 | Emergency (ER) | payer OTHER ==
[~2017-11-05] VITALS: Ht 157.5 cm; Wt 92.5 kg
--- NOTE | ~2017-11-05 | EKG ---
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
[2017-11-05 23:52] LABS: URINE BILIRUBIN NEGATIVE (Negative); URINE BLOOD NEGATIVE (Negative); URINE CLARITY SL CLOUDY; URINE GLUCOSE-RANDOM* 3+ (Negative); URINE KETONES NEGATIVE (Negative); URINE LEUKOCYTES-REFLEX NEGATIVE (Negative); URINE NITRITE-REFLEX NEGATIVE (Negative); URINE PROTEIN (DIPSTICK) NEGATIVE (Negative); URINE SPECIFIC GRAVITY <= 1.005 (1.005-1.035); URINE UROBILINOGEN 0.2 E.U./dl (0.2-1.0)
[2017-11-05 23:57] LABS: URINE COLOR COLORLESS
[2017-11-06 01:23] LABS: ABSOLUTE NEUTROPHILS 6.7 thou/uL (1.4-8.2); BASOPHILS 1.3 % (0.0-2.0); EOSINOPHILS 1.6 % (0.0-3.0); HEMATOCRIT 37.5 % (37.0-47.0); HEMOGLOBIN 12.4 gm/dL (12.0-15.0); LYMPHOCYTES 33.4 % (24.0-44.0); MCH 25.2 pg (26.0-34.0); MCHC 33.1 g/dL (28.0-37.0); MCV 76.2 fL (80.0-100.0); MONOCYTES 8.8 % (1.0-8.0); PLATELET COUNT 388 thou/uL (150-400); POLYS 54.9 % (36.0-66.0); RBC 4.92 mil/uL (4.20-5.00); RDW 14.5 % (10.5-14.5); WBC 12.3 thou/uL (4.0-11.0)
[2017-11-06 01:30] LABS: CALCIUM 9.5 mg/dL (8.5-10.1); CREATININE 0.8 mg/dL (0.6-1.0); POTASSIUM 3.8 mmol/L (3.5-5.1)
[2017-11-06 01:36] LABS: TOTAL BILIRUBIN 0.2 mg/dL (<0.1-1.0); TOTAL PROTEIN 7.6 g/dL (6.4-8.2)
[2017-11-06 03:04] VITALS: BP 132/77
[2018-02-24] MEDS ORDERED: ATIVAN0.5 MG PO (07:02)
[2018-02-24] MEDS ORDERED: ZPAK PO (07:09)
== END 2017-11-06 03:00 | disposition home or self-care (01) ==
LOC: ER 22:29
PROVIDERS: Emergency Medicine
DX: E11.65 Type 2 diabetes mellitus with hyperglycemia (principal); I10 Essential (primary) hypertension; J45.909 Unspecified asthma, uncomplicated; Z90.49 Acquired absence of other specified parts of digestive tract

== ENCOUNTER 2018-01-07 01:41 | Emergency (ER) | payer OTHER ==
[~2018-01-07] VITALS: Ht 157.5 cm; Wt 92.5 kg
--- NOTE | ~2018-01-07 | EKG ---
[place] [address] [facility] [place] [address] ELECTROCARDIOGRAM REPORT Name: GLORIADAWOODEDDA DE SOUZA [facility] [id number] Admission: 01/07/18 Attend Phys: Discharge: 01/07/18 Date of : 69 Report #: [id number] THIS REPORT FOR: //name// [facility] ED Test Date: 2018-01-07 Test Time: 01:52:15 Pat Name: DAWOOD CASTRO Department: Room: Gender: F Milk Pickup Driver: VINICIO : 1965 Requested By: Rex Archibald Order Number: [id number] MD: Everett Ochoa Measurements Intervals [place] Rate: 89 P: 38 NV: 145 QRS: 17 QRSD: 80 T: 23 QT: 390 QTc: 475 Interpretive Statements Sinus rhythm Low voltage, precordial leads Compared to ECG 11/05/2017 22:39:19 No significant change was found Electronically Signed On 01-08-2018 7:58:44 CDT by Everett Ochoa [email or web address] <ELECTRONICALLY SIGNED> By: Everett Ochoa MD, [facility] 01/08/18 0758 0152 015 Everett Ochoa MD, FACC /EPI
[2018-01-07] MEDS ORDERED: ADVAIR HFA 230M12 GM INH (02:09)
[2018-01-07] MEDS ORDERED: PREDNISONE 10 M10 MG PO (02:10)
[2018-01-07 02:51] LABS: ABSOLUTE NEUTROPHILS 5.9 thou/uL (1.4-8.2); BASOPHILS 0.4 % (0.0-2.0); EOSINOPHILS 1.6 % (0.0-3.0); HEMATOCRIT 38.5 % (37.0-47.0); HEMOGLOBIN 12.7 gm/dL (12.0-15.0); LYMPHOCYTES 38.7 % (24.0-44.0); MCH 25.4 pg (26.0-34.0); MCHC 33.1 g/dL (28.0-37.0); MCV 76.7 fL (80.0-100.0); MONOCYTES 7.5 % (1.0-8.0); PLATELET COUNT 418 thou/uL (150-400); POLYS 51.8 % (36.0-66.0); RBC 5.02 mil/uL (4.20-5.00); RDW 14.5 % (10.5-14.5); WBC 11.4 thou/uL (4.0-11.0)
[2018-01-07 02:54] LABS: ANION GAP 10 mmol/L (7-16); BUN 14 mg/dL (7-18); CALCIUM 9.3 mg/dL (8.5-10.1); CHLORIDE 99 mmol/L (98-107); CO2 26 mmol/L (21-32); CREATININE 0.7 mg/dL (0.6-1.0); GLUCOSE 302 mg/dL (74-106); POTASSIUM 3.4 mmol/L (3.5-5.1); SODIUM 135 mmol/L (136-145)
[2018-01-07 03:03] LABS: TROPONIN-I < 0.04 ng/mL (<0.06)
== END 2018-01-07 04:12 | disposition home or self-care (01) ==
LOC: ER 01:41
PROVIDERS: Emergency Medicine
DX: R06.02 Shortness of breath (principal); R07.9 Chest pain, unspecified; R05 Cough; R50.9 Fever, unspecified; E11.9 Type 2 diabetes mellitus without complications; I10 Essential (primary) hypertension; J45.909 Unspecified asthma, uncomplicated; M32.9 Systemic lupus erythematosus, unspecified; Z90.710 Acquired absence of both cervix and uterus; Z90.49 Acquired absence of other specified parts of digestive tract; Z86.2 Personal history of diseases of the blood and blood-forming organs and certain disorders involving the immune mechanism; Z87.440 Personal history of urinary (tract) infections; Z79.4 Long term (current) use of insulin

== ENCOUNTER 2021-10-11 22:27 | Emergency (ER) | payer OTHER ==
[~2021-10-11] VITALS: Ht 157.5 cm; Wt 90.7 kg
[~2021-10-11 22:27] MED LIST changes: +ADVAIR HFA 230M12 GM INH; +ATIVAN0.5 MG PO; +PREDNISONE 10 M10 MG PO
[2021-10-12 00:19] LABS: URINE BILIRUBIN NEGATIVE (Negative); URINE BLOOD NEGATIVE (Negative); URINE CLARITY CLEAR; URINE COLOR YELLOW; URINE GLUCOSE-RANDOM* NEGATIVE (Negative); URINE KETONES NEGATIVE (Negative); URINE LEUKOCYTES-REFLEX NEGATIVE (Negative); URINE NITRITE-REFLEX NEGATIVE (Negative); URINE PROTEIN (DIPSTICK) NEGATIVE (Negative); URINE UROBILINOGEN 0.2 E.U./dl (0.2-1.0)
[2021-10-12 01:51] LABS: ABSOLUTE NEUTROPHILS 8.6 thou/uL (1.4-8.2); BASOPHILS 1.1 % (0.0-2.0); HEMATOCRIT 36.9 % (37.0-47.0); HEMOGLOBIN 12.3 gm/dL (12.0-15.0); LYMPHOCYTES 23.8 % (24.0-44.0); MCH 25.6 pg (26.0-34.0); MCHC 33.3 g/dL (28.0-37.0); MCV 76.9 fL (80.0-100.0); PLATELET COUNT 381 thou/uL (150-400); POLYS 68.1 % (36.0-66.0); RDW 15.1 % (10.5-14.5); WBC 12.7 thou/uL (4.0-11.0)
[2021-10-12 01:55] LABS: CALCIUM 9.5 mg/dL (8.5-10.1); CREATININE 0.8 mg/dL (0.6-1.0); POTASSIUM 4.2 mmol/L (3.5-5.1)
[2021-10-12 02:02] LABS: ALBUMIN 3.4 g/dL (3.4-5.0); TOTAL BILIRUBIN 0.2 mg/dL (0.2-1.0); TOTAL PROTEIN 7.6 g/dL (6.4-8.2)
[2021-10-12] MEDS ORDERED: NORFLEX100 MG PO (02:39)
[2021-10-12 03:09] VITALS: BP 124/69
== END 2021-10-12 02:40 | disposition home or self-care (01) ==
LOC: ER 22:27
PROVIDERS: Emergency Medicine
DX: R10.11 Right upper quadrant pain (principal); I10 Essential (primary) hypertension; E11.9 Type 2 diabetes mellitus without complications; J45.909 Unspecified asthma, uncomplicated; Z79.899 Other long term (current) drug therapy; Z98.890 Other specified postprocedural states; Z90.49 Acquired absence of other specified parts of digestive tract; Z79.51 Long term (current) use of inhaled steroids; Z79.4 Long term (current) use of insulin